=== PATIENT | male | born 1975 | race Caucasian/White ===

== ENCOUNTER 2021-11-04 08:20 | Observation (INO) ==
[2021-11-04] MEDS ORDERED: Ketorolac 30 MG/ML VIAL IVP ONE (09:16)
[2021-11-04] MEDS ORDERED: Ondansetron 4 MG/2 ML VIAL IVP ONE ×2 (09:16→11:29)
[2021-11-04 09:32] LABS: Basophils # 0.1 K/mcL (0.0-0.2); Basophils % 0.3 %; Eosinophils % 0.1 %; Hematocrit 47.8 % (37.5-50.1); Hemoglobin 15.9 g/dL (12.9-16.9); Immature Granulocytes % 0.9 % (0-4); Lymphocytes # 0.6 K/mcL (0.6-4.6); Lymphocytes % 3.5 %; Mean Corpuscular HGB Conc 33.3 g/dL (31.6-35.5); Mean Corpuscular Volume 87.1 fL (83.0-100.0); Mean Platelet Volume 10.2 fL (9.4-12.4); Monocytes # 0.9 K/mcL (0.0-1.3); Neutrophils # 15.2 K/mcL (1.6-8.9); Platelet Count 290 K/mcL (140-400); Red Blood Count 5.49 M/mcL (4.19-5.50); Red Cell Distribution Width 12.6 % (11.5-14.5); Segmented Neutrophils % 90.2 %; White Blood Count 16.9 K/mcL (4.3-11.1)
[2021-11-04 09:37] LABS: Bilirubin,Urine Negative (Negative); Blood,Urine Large (Negative); Clarity,Urine Turbid (Clear); Color,Urine Yellow (Yellow); Glucose,Urine (UA) Normal (Normal); Ketones,Urine 60 mg/dL (Negative); Leukocyte Esterase,Urine Negative (Negative); Mucus,Urine Few per lpf (None-Few); Nitrite,Urine Negative (Negative); PH,Urine 8.5 pH Units (5.0-8.0); Protein,Urine 50 mg/dL (Neg-Trace); RBC,Urine TNTC per hpf (0-3); Specific Gravity,Urine 1.028 (1.010-1.025); Urobilinogen,Urine Normal (Normal); WBC,Urine 0-3 per hpf (0-3)
[2021-11-04 09:48] LABS: BUN/Creatinine Ratio 16 (6-26); Blood Urea Nitrogen 24 mg/dL (6-20); Calcium 10.4 mg/dL (8.6-10.3); Carbon Dioxide 26 mEq/L (23-29); Chloride 105 mEq/L (98-107); Glucose 145 mg/dL (70-105); Osmolality,Calculated 301 (280-300); Potassium 4.2 mEq/L (3.5-5.1); Sodium 142 mEq/L (136-145); eGFR For African Americans > 60 (> 60); eGFR For Non-African Americans 51 (> 60)
[2021-11-04] MEDS ORDERED: Ringers Solution, Lactated 1,000 ML IVC ONE (10:42)
[2021-11-04] MEDS ORDERED: Morphine Sulfate 2 MG/ML SYRINGE IVP ONE (11:21)
[2021-11-04] MEDS ORDERED: Naloxone 0.4 MG/ML INJ IVP PRN ×2 (11:39→17:16)
[2021-11-04] MEDS ORDERED: Ondansetron 4 MG/2 ML VIAL IVP PRN ×2 (15:18→17:16)
[2021-11-04] MEDS ORDERED: Pregabalin 75 MG CAPSULE PO ONE (15:18)
[2021-11-04] MEDS ORDERED: Scopolamine Patch 1.5 MG PATCH.TD72 TD ONE (15:18)
[2021-11-04] MEDS ORDERED: Famotidine 20 MG/2 ML VIAL IVP ONE (15:18)
[2021-11-04] MEDS ORDERED: Promethazine Syrup 6.25 MG/5 ML PO PRN (15:18)
[2021-11-04] MEDS ORDERED: *HR* OxyCODONE Immed Rel 5 MG TABLET PO PRN (15:18)
[2021-11-04] MEDS ORDERED: Acetaminophen IV 1,000 MG/100 ML BAG IVPB ONE ×2 (15:18→15:56)
[2021-11-04] MEDS ORDERED: *HR* Labetalol 20 MG/4 ML SYRINGE IVP PRN (15:18)
[2021-11-04] MEDS ORDERED: *HR* HYDROmorphone (PF) 1 MG/ML SYRINGE IVP PRN (15:18)
[2021-11-04] MEDS ORDERED: Isovue-300 50ML VIAL ONE (15:20)
[2021-11-04] MEDS ORDERED: *HR* FentaNYL (PF) 100 MCG/2 ML VIAL ONE (15:24)
[2021-11-04] MEDS ORDERED: *HR* Propofol 200 MG/20 ML VIAL IVP ONE (15:24)
[2021-11-04] MEDS ORDERED: *HR* Midazolam HCl 2 MG/2 ML VIAL ONE (15:24)
[2021-11-04] MEDS ORDERED: Lidocaine -MPF 2% 2 ML VIAL ONE (15:24)
[2021-11-04] MEDS ORDERED: Ondansetron 4 MG/2 ML VIAL ONE (15:24)
[2021-11-04] MEDS ORDERED: Dexmedetomidine HCl 400 MCG/100 ML MLS IVC ONE (15:32)
[2021-11-04] MEDS ORDERED: Hyoscyamine SL 0.125 MG TAB.SUBL SL PRN (17:16)
[2021-11-04] MEDS ORDERED: 0.9 % Sodium Chloride 1,000 ML IVC SCH (17:16)
[2021-11-04] MEDS ORDERED: *HR* Belladonna Alkaloids/Opium 30 MG RECTAL SUPPOSITORY RC PRN (17:16)
[2021-11-04] MEDS ORDERED: *HR* HYDROcodone/Acet 5/325 mg TABLET PO PRN (17:16)
[2021-11-04] MEDS ORDERED: Ringers Solution, Lactated 1,000 ML IVC SCH (18:00)
[2021-11-05 04:44] LABS: Basophils % 0.1 %; Hematocrit 42.3 % (37.5-50.1); Immature Granulocytes % 0.9 % (0-4); Lymphocytes # 0.8 K/mcL (0.6-4.6); Lymphocytes % 4.2 %; Mean Corpuscular HGB Conc 32.9 g/dL (31.6-35.5); Mean Corpuscular Volume 88.3 fL (83.0-100.0); Mean Platelet Volume 10.5 fL (9.4-12.4); Monocytes # 0.9 K/mcL (0.0-1.3); Monocytes % 4.7 %; Neutrophils # 16.9 K/mcL (1.6-8.9); Platelet Count 248 K/mcL (140-400); Red Blood Count 4.79 M/mcL (4.19-5.50); Red Cell Distribution Width 12.8 % (11.5-14.5); Segmented Neutrophils % 90.1 %; White Blood Count 18.8 K/mcL (4.3-11.1)
[2021-11-05 04:45] LABS: Hemoglobin 13.9 g/dL (12.9-16.9)
[2021-11-05 04:59] LABS: BUN/Creatinine Ratio 21 (6-26); Blood Urea Nitrogen 26 mg/dL (6-20); Calcium 8.9 mg/dL (8.6-10.3); Carbon Dioxide 25 mEq/L (23-29); Chloride 106 mEq/L (98-107); Glucose 119 mg/dL (70-105); Osmolality,Calculated 294 (280-300); Sodium 139 mEq/L (136-145); eGFR For African Americans > 60 (> 60); eGFR For Non-African Americans > 60 (> 60)
[2021-11-05 11:37] VITALS: BP 112/62; PULSE 58; TEMP 98; O2SAT 97
[2021-11-10 12:52] LABS: Calculi Mass 18 mg
== END 2021-11-05 14:16 | disposition home or self-care (01) ==
LOC: EMEROOARM 08:20 → 3BNU 08:20 → SUATTDRO 11:36 → 3BNU 12:29
PROVIDERS: ADMIT Internal Medicine; ATTEND Nurse Practitioner